=== PATIENT | female | born 1930 | race Caucasian/White ===

== ENCOUNTER 2020-03-15 06:58 | Outpatient (CLI) | payer MEDICARE ==
--- NOTE | 2020-03-15 09:14 | ULT ---
ULTRASOUND ABDOMEN: HISTORY: Abdominal pain. FINDINGS: There is a 1.6 cm cyst in the left lobe of the liver. A single non-mobile shadowing 2.4 mm gallstone is seen without gallbladder wall thickening or cholecystic fluid. The common duct measures 8 mm in diameter. The tail of the pancreas is not visualized. The visualized portions of the pancreas and I VC are normal. The right kidney is normal. The abdominal aorta demonstrates an aneurysm measuring 4 cm in transverse and 3.7 cm AP dimension. No free fluid is seen. IMPRESSION: 1. Hepatic cyst. 2. Cholelithiasis. 3. Abdominal aortic aneurysm measuring 4 x 3.7 cm. POS: [facility]
== END 2020-03-15 06:59 | disposition home or self-care (01) ==
LOC: BICULT 06:58
PROVIDERS: ATTEND Internal Medicine
DX: R10.13 Epigastric pain (principal); R14.0 Abdominal distension (gaseous); K76.89 Other specified diseases of liver; K80.20 Calculus of gallbladder without cholecystitis without obstruction; I71.4 Abdominal aortic aneurysm, without rupture
CPT/HCPCS: 76705

== ENCOUNTER 2020-08-03 11:42 | Outpatient (CLI) | payer MEDICARE, OTHER ==
[2020-08-03 14:16] LABS: Hemoglobin 14.1 g/dL (12.0-16.0); Mean Corpuscular HGB CONC 34.1 g/dL (32.0-36.0); Mean Corpuscular Hemoglobin 33.7 pg (27.0-31.0); Mean Corpuscular Volume 98.9 fL (78.0-98.0); Mean Platelet Volume 7.4 fL (7.4-10.4); Platelet Count 334 thou/uL (130-400); RBC Distribution Width 12.2 % (11.5-14.5); Red Blood Cell (RBC) Count 4.17 mill/uL (4.20-5.40); White Blood Cell (WBC) Count 7.3 thou/uL (4.8-10.8)
[2020-08-03 15:36] LABS: ALT (SGPT) 13 U/L (8-55); AST (SGOT) 16 U/L (5-34); Albumin 4.2 g/dL (3.4-4.8); Alkaline Phosphatase 63 U/L (40-110); Anion Gap 17 mmol/L (10-20); BUN (Urea Nitrogen) 15 mg/dL (9.8-20.1); Bilirubin, Direct 0.2 mg/dL (0.1-0.3); Bilirubin, Total 0.5 mg/dL (0.2-1.2); Calc. Creatinine Clearance 0 mL/min (70-130); Calcium 9.7 mg/dL (7.8-10.44); Carbon Dioxide 24 mmol/L (23-31); Chloride 100 mmol/L (98-107); Estimated GFR-MDRD 49; Glucose 104 mg/dL (83-110); Potassium 3.3 mmol/L (3.5-5.1); Protein, Total 6.7 g/dL (6.0-8.3); Sodium 138 mmol/L (136-145)
[2020-08-04 12:06] LABS: SARS-CoV-2 MS2 Positive; SARS-CoV-2 N Gene Negative; SARS-CoV-2 S Gene Negative; SARS-CoV-2 by NAA Not Detected (NotDetected); SARS-CoV-2 orf1ab Negative
== END 2020-08-03 11:43 | disposition home or self-care (01) ==
LOC: LABBT 11:42
PROVIDERS: ATTEND Surgery
DX: Z01.812 Encounter for preprocedural laboratory examination (principal); Z20.828 Contact with and (suspected) exposure to other viral communicable diseases; K80.20 Calculus of gallbladder without cholecystitis without obstruction
CPT/HCPCS: 80048; 80076; 85027; U0003; 87635

== ENCOUNTER 2020-08-08 06:48 | Day surgery (SDC) | payer MEDICARE ==
[2020-08-04 13:39] VITALS: BMI 25.0
[2020-08-08] MEDS ORDERED: cefOXitin Sodium/Dextrose 2 GM/50 ML BAG ONE (08:10)
[2020-08-08] MEDS ORDERED: Iothalamate Meglumine 60% 50 ML VIAL FS ONE (08:17)
[2020-08-08] MEDS ORDERED: Bupivacaine/Epinephrine 0.25% 30 ML VIAL ONE (08:17)
[2020-08-08] MEDS ORDERED: Fentanyl 100 MCG/2 ML VIAL ONE ×3 (08:22→10:31)
[2020-08-08] MEDS ORDERED: Ondansetron ODT 4 MG TAB ONE (08:23)
[2020-08-08] MEDS ORDERED: Dexamethasone 20 MG/5 ML VIAL ONE (09:40)
[2020-08-08] MEDS ORDERED: PROPOFOL 200 MG/20 ML VIAL ONE (09:40)
[2020-08-08] MEDS ORDERED: Glycopyrrolate 0.2 MG/ML 5 ML SYRINGE ONE (09:40)
[2020-08-08] MEDS ORDERED: Lidocaine 1% PF 5 ML VIAL ONE (09:40)
[2020-08-08] MEDS ORDERED: Rocuronium Bromide 10 MG/ML (10ML VIAL) ONE (09:40)
[2020-08-08] MEDS ORDERED: Ondansetron HCl/PF 4 MG/2 ML Vial IVP PRN (10:08)
[2020-08-08] MEDS ORDERED: Promethazine HCl 25 MG/ML VIAL IM PRN (10:08)
[2020-08-08] MEDS ORDERED: Promethazine HCl 25 MG/ML VIAL SLOW IVP PRN (10:08)
[2020-08-08] MEDS ORDERED: PACU-Morphine 4MG/ML VIAL SLOW IVP PRN (10:08)
[2020-08-08] MEDS ORDERED: Morphine 4 MG/ML VIAL ONE (10:24)
[2020-08-08] MEDS ORDERED: HYDROcodone/Acetaminophen 5/325 mg Tablet ONE (11:59)
--- NOTE | 2020-08-08 15:16 | OP ---
DATE OF PROCEDURE: 08/08/2020 PREOPERATIVE DIAGNOSIS: Symptomatic gallstones. POSTOPERATIVE DIAGNOSIS: Symptomatic gallstones. PROCEDURE: Laparoscopic cholecystectomy. ANESTHESIA: General. ESTIMATED BLOOD LOSS: Minimal. COMPLICATIONS: None. SPECIMEN: Gallbladder. FINDINGS: Chronic cholecystitis. PROCEDURE IN DETAIL: The patient was taken to the operating room and laid supine on the operating room table. After general anesthetic was obtained, the abdomen was prepped and draped in a sterile fashion. A curved incision was made below the umbilicus. Cautery was used to dissect down to the umbilical fascia. Umbilical fascia was incised and held up using a Reid. The abdominal cavity was entered using a Jeana clamp. Holding stitch of Vicryl was placed on each side of the fascia. Oliver trocar was placed. High-flow pneumoperitoneum was obtained. An upper midline 5 mm port and 2 right upper quadrant 5 mm ports were placed under direct camera visualization. The gallbladder was retracted from the gallbladder fossa. The peritoneum of the gallbladder was opened anteriorly and posteriorly. The critical view triangle was seen showing only the cystic duct and cystic artery branching from medial to lateral. There were no other branching structures. Two clips were placed proximally on the cystic duct and one laterally. It was cut using laparoscopic scissors. The cystic artery was taken in the same way. Electrocautery was then used to dissect the gallbladder out of the gallbladder fossa. The gallbladder was placed in an Endo catch bag and brought out through the Oliver. There was no bleeding or bile in the liver bed. The cystic duct stump and cystic artery stump were intact, without evidence of extravasation or bleeding. All port sites were infiltrated using local anesthesia. All ports were removed under camera visualization. Pneumoperitoneum was let down. The Vicryl was used to close the fascial defect below the umbilicus. All incisions were irrigated and closed using 4-0 Monocryl and Dermabond. The patient was en route to Recovery in stable condition. All instrument counts, needle counts and lap counts were correct. Job ID: [id number]
--- NOTE | 2020-08-09 16:11 | EKG ---
Test Reason : PREOP Blood Pressure : / mmHG Vent. Rate : 048 BPM Atrial Rate : 048 BPM P-R Int : 182 ms QRS Dur : 102 ms QT Int : 472 ms P-R-T Axes : 015 -39 012 degrees QTc Int : 421 ms Marked sinus bradycardia Left axis deviation Minimal voltage criteria for LVH, may be normal variant Non-specific intra-ventricular conduction delay Nonspecific ST and T wave abnormality Abnormal ECG No previous ECGs available Confirmed by ROSALBA CHERY ([id number]) on 08/09/2020 4:11:07 PM Referred By: BETH Confirmed By:ROSALBA CHERY
== END 2020-08-08 13:05 | disposition home or self-care (01) ==
LOC: SDC 06:48
PROVIDERS: ATTEND Surgery
PROC: 0FT44ZZ Resection of Gallbladder, Percutaneous Endoscopic Approach (ICD-10-PCS; principal; 2020-08-08)
DX: K80.10 Calculus of gallbladder with chronic cholecystitis without obstruction (principal); I10 Essential (primary) hypertension; E78.00 Pure hypercholesterolemia, unspecified; F41.9 Anxiety disorder, unspecified; F32.9 Major depressive disorder, single episode, unspecified; E03.9 Hypothyroidism, unspecified; M18.9 Osteoarthritis of first carpometacarpal joint, unspecified; Z79.899 Other long term (current) drug therapy; Z88.1 Allergy status to other antibiotic agents
CPT/HCPCS: 88304; 93005; 93010; J0694; J1100; J2270; J2704; J3010; Q0162

== ENCOUNTER 2020-08-13 10:26 | Observation (INO) | payer MEDICARE ==
[2020-08-13 11:16] LABS: #Eosinphils 0.1 thou/uL (0.0-0.7); #Monocytes 0.5 thou/uL (0.11-0.59); #Neutrophils 6.2 thou/uL (1.40-6.50); %Basophils 0.3 % (0.0-1.0); %Lymphocytes 12.4 % (21.0-51.0); %Monocytes 6.7 % (0.0-10.0); %Neutrophils 79.6 % (42.0-75.0); Hemoglobin 14.4 g/dL (12.0-16.0); Mean Corpuscular HGB CONC 34.2 g/dL (32.0-36.0); Mean Corpuscular Hemoglobin 33.9 pg (27.0-31.0); Mean Corpuscular Volume 99.2 fL (78.0-98.0); Mean Platelet Volume 7.6 fL (7.4-10.4); Platelet Count 461 thou/uL (130-400); RBC Distribution Width 12.1 % (11.5-14.5); Red Blood Cell (RBC) Count 4.23 mill/uL (4.20-5.40); White Blood Cell (WBC) Count 7.8 thou/uL (4.8-10.8)
[2020-08-13] MEDS ORDERED: Morphine 4 MG/ML VIAL ONE (11:19)
[2020-08-13] MEDS ORDERED: Ondansetron PF 4 MG/2 ML Vial ONE (11:19)
[2020-08-13 11:35] LABS: ALT (SGPT) 19 U/L (8-55); AST (SGOT) 18 U/L (5-34); Albumin 3.7 g/dL (3.4-4.8); Alkaline Phosphatase 72 U/L (40-110); Anion Gap 19 mmol/L (10-20); BUN (Urea Nitrogen) 14 mg/dL (9.8-20.1); Bilirubin, Total 0.8 mg/dL (0.2-1.2); CK (CPK) 53 U/L (29-168); Calc. Creatinine Clearance 0 mL/min (70-130); Calcium 9.6 mg/dL (7.8-10.44); Carbon Dioxide 25 mmol/L (23-31); Chloride 97 mmol/L (98-107); Estimated GFR-MDRD 52; Globulin 3.4 g/dL (2.4-3.5); Glucose 193 mg/dL (83-110); Protein, Total 7.1 g/dL (6.0-8.3); Sodium 138 mmol/L (136-145)
[2020-08-13 11:41] LABS: Potassium 2.8 mmol/L (3.5-5.1)
[2020-08-13] MEDS ORDERED: Potassium Chloride 20 MEQ/100 ML PREMIX BAG ONE (12:10)
[2020-08-13] MEDS ORDERED: Aspirin Chewable 81 MG TAB ONE ×2 (12:10)
[2020-08-13] MEDS ORDERED: Iopamidol-370 76% 500 ML 1 ML ONE (13:47)
--- NOTE | 2020-08-13 13:47 | RAD ---
PORTABLE CHEST: 08/13/20 HISTORY: Gallbladder removed on Saturday. Woke up last night with sweats, left arm and chest pain. Heart size is within normal limits. There are atherosclerotic changes of the aorta. There is some mil d elevation of the right hemidiaphragm. No focal infiltrative process or signs of failure. Arthritic changes of both shoulders. IMPRESSION: No active intrathoracic disease. POS: OFF
[2020-08-13 14:27] LABS: Bacteria/HPF 4+ HPF (None Seen); Bilirubin Negative (Negative); Blood, Urine Negative (Negative); Clarity Clear (Clear); Glucose, Urine (Dipstick) Normal (Negative); Ketone, Urine Negative (Negative); Leukocyte 25 Leu/uL (Negative); Nitrite Negative (Negative); Protein, Urine (Dipstick) Negative (Neg-Trace); RBC/HPF None Seen HPF (0-3); Specific Gravity, Urine 1.006 (1.002-1.036); Squamous Epithelial 0-3 HPF (0-3); Urobilinogen Normal mg/dL (Less than 2); pH, Urine 6.5 (5.0-9.0)
[2020-08-13 14:59] LABS: Lactic Acid 1.2 mmol/L (0.5-2.2)
[2020-08-13 17:18] LABS: Troponin I 0.029 ng/mL (< 0.028)
[2020-08-13] MEDS ORDERED: Ondansetron PF 4 MG/2 ML Vial IVP PRN (17:24)
[2020-08-13] MEDS ORDERED: Acetaminophen 325 MG TAB PO PRN (17:24)
--- NOTE | 2020-08-13 17:28 | CT ---
CT ANGIO OF CHEST PERFORMED WITH INTRAVENOUS CONTRAST ENHANCEMENT WITH 3D RECONSTRUCTIONS: 08/13/20 HISTORY: Chest pain. Elevated D-dimer. The lungs are clear of any infiltrative process. There is a small right pleural effusion and right lo wer lobe atelectatic changes. There is some free air under the right hemidiaphragm and some fluid adj acent to the liver. Patient is status post a cholecystectomy five days ago and this air could be rela sharon to the cholecystectomy. There is no significant mediastinal or hilar adenopathy and the thoracic aorta is normal in caliber. There is good pulmonary artery opacification. There is no CT evidence for pulmonary embolus. The gall bladder fossa region is partially visualized. There is mixed fluid and air seen within the gallbladde r fossa region. Again, this could be postop. Early changes of an abscess are not excluded. Hypodensit y within the left lobe of the liver statistically most likely a cyst, difficult to characterize. IMPRESSION: 1. Fairly small right pleural effusion with right lower lobe atelectasis. Also some fluid adjace nt to the liver. The liver and mixed collection of air and fluid in the gallbladder fossa region. Thi s could just be related to the recent surgery. There is also some free air seen within the abdomen al isis the dome of the liver. Again possibly all post cholecystectomy. I would probably be helpful to ob tain a CT of the abdomen to evaluate for any other significant free fluid as there could be a possibi lity of developing abscess or some type of bile leak causing the fluid around the liver capsule. 2. No CT evidence for pulmonary embolus. POS: OFF
[2020-08-13] MEDS ORDERED: Potassium Chloride 20 MEQ TAB PO SCH (17:30)
[2020-08-13] MEDS ORDERED: Potassium Chloride 20 MEQ TAB ONE (18:22)
--- NOTE | 2020-08-13 18:53 | HP ---
CHIEF COMPLAINT: Epigastric and chest pain. HISTORY OF PRESENT ILLNESS: The patient is an 89-year-old female with past medical history of hypertension, hyperlipidemia, and recent cholecystectomy on August 08 for symptomatic gallstones, who presented to the hospital today with complaints of upper epigastric and lower chest burning that started last night and woke her up from sleep. The patient stated that the pain was associated with nausea and heavy sweating. She called her Life Alert button and EMS arrived. The patient was evaluated and no abnormality was detected. She went back to bed and after waking up today, she started experiencing the pain again, which prompted her to come to the emergency department. The patient denies fever, chills, palpitations, dizziness, or syncope. In the ER, her initial EKG was unremarkable and initial troponin was negative. Her D-dimer was elevated and CT angiogram of the chest was done and did not show any evidence of pulmonary emboli. The patient did not undergo any coronary artery disease related testing in the past. REVIEW OF SYSTEMS: Negative except as noted in HPI. PAST MEDICAL HISTORY: As noted above. PAST SURGICAL HISTORY: Cholecystectomy. FAMILY HISTORY: Noncontributory for her current presentation. ALLERGIES: THE PATIENT IS ALLERGIC TO LEVOFLOXACIN. PHYSICAL EXAMINATION: GENERAL: The patient is alert and oriented x3. HEENT: Head is normocephalic and atraumatic. Extraocular muscles are intact. NECK: Supple. CHEST: Clear to auscultation bilaterally. CARDIOVASCULAR: Normal S1 and S2, regular rate and rhythm. No murmurs, rubs, or gallops. ABDOMEN: Soft, nontender, nondistended. Bowel sounds are normal. NEUROLOGICAL: Unremarkable. LABORATORY DATA: This is positive for hypokalemia with potassium of 2.8 and slight hyperglycemia with a glucose of 193. Initial lactic acid was 2.5 and repeat was 1.2. ASSESSMENT: 1. Chest pain, rule out acute coronary syndrome. 2. Recent cholecystectomy. 3. Hypertension. 4. Hyperlipidemia. 5. Hypokalemia. 6. Lactic acidosis. PLAN: The patient will be placed in observation in the telemetry unit. We will initiate gentle hydration as the patient's initial labs revealed lactic acidosis. Trend troponin levels. Start Protonix 40 mg orally twice daily. Replace potassium. Hold HCTZ as this is the likely etiology of her hypokalemia. N.p.o. after midnight and stress test in the morning if her troponins remain low. Enoxaparin for DVT prophylaxis. Job ID: [id number]
[2020-08-13] MEDS: Sodium Chloride 0.9% 1,000 ML IV SCH (19:42)
[2020-08-13 19:49] LABS: Troponin I 0.027 ng/mL (< 0.028)
[2020-08-13] MEDS ORDERED: Atorvastatin Calcium 20 MG TAB PO SCH (21:00)
[2020-08-13] MEDS ORDERED: Amlodipine 5 MG TAB PO SCH (21:00)
[2020-08-13 22:11] VITALS: BMI 25.8
[2020-08-13] MEDS: Pantoprazole 40 MG GRANULES PACKET PO SCH (23:05)
[2020-08-14] MEDS ORDERED: Melatonin 3 MG TAB PO PRN (00:09)
[2020-08-14 05:45] LABS: #Eosinphils 0.3 thou/uL (0.0-0.7); #Lymphocytes 1.4 thou/uL (1.20-3.40); #Monocytes 0.6 thou/uL (0.11-0.59); #Neutrophils 4.5 thou/uL (1.40-6.50); %Basophils 0.7 % (0.0-1.0); %Lymphocytes 20.7 % (21.0-51.0); %Monocytes 8.7 % (0.0-10.0); Hemoglobin 11.7 g/dL (12.0-16.0); Mean Corpuscular HGB CONC 33.8 g/dL (32.0-36.0); Mean Corpuscular Hemoglobin 33.9 pg (27.0-31.0); Mean Platelet Volume 7.4 fL (7.4-10.4); Platelet Count 391 thou/uL (130-400); RBC Distribution Width 12.2 % (11.5-14.5); Red Blood Cell (RBC) Count 3.47 mill/uL (4.20-5.40); White Blood Cell (WBC) Count 6.8 thou/uL (4.8-10.8)
[2020-08-14] MEDS ORDERED: Levothyroxine Sodium 100 MCG TAB PO SCH (06:00)
[2020-08-14 06:04] LABS: Anion Gap 14 mmol/L (10-20); BUN (Urea Nitrogen) 13 mg/dL (9.8-20.1); Calc. Creatinine Clearance 53 mL/min (70-130); Calcium 8.6 mg/dL (7.8-10.44); Carbon Dioxide 26 mmol/L (23-31); Chloride 103 mmol/L (98-107); Estimated GFR-MDRD 64; Glucose 103 mg/dL (83-110); Potassium 3.4 mmol/L (3.5-5.1); Sodium 140 mmol/L (136-145)
[2020-08-14] MEDS: Pantoprazole 40 MG GRANULES PACKET PO SCH (08:17)
[2020-08-14] MEDS: Sodium Chloride 0.9% 1,000 ML IV SCH (08:17)
[2020-08-14] MEDS ORDERED: Losartan 25 MG TAB PO SCH (09:00)
[2020-08-14] MEDS ORDERED: Enoxaparin Sodium 40 MG/0.4 ML SYRINGE SC SCH (09:00)
[2020-08-14] MEDS ORDERED: Aspirin 81 mg Enteric Coated Tablet PO SCH (09:00)
[2020-08-14] MEDS ORDERED: ADENOSINE 60 MG/20 ML VIAL ONE (12:38)
--- NOTE | 2020-08-14 13:14 | NM ---
EXAM: NM Cardiac Stress W EF WF PROVIDED CLINICAL HISTORY: Chest pain and hypertension. COMPARISON: None FINDINGS: This examination is performed as a pharmacologic myocardial stress test after the administration of a denosine intravenously. There is a small relatively fixed defect seen involving the distal ventricular septum and at the apex . No significant reversible defect is seen between the stress and resting acquisitions. Gated images demonstrate normal ventricular wall motion and wall thickening. The calculated left ventricula r ejection fraction is 79%. IMPRESSION: 1. Relatively fixed defect involving the distal septum and ventricular apex, but there is normal vent ricular wall motion and wall thickening in this region. Findings are likely related to overlying soft tissue attenuation. There is no significant reversible defect seen to suggest ischemia. 2. Normal LVEF of 79%.
[2020-08-14 13:41] VITALS: BP 131/62; TEMP 98
[2020-08-14] MEDS ORDERED: FLU VACC QS2020-21(65YR UP)/PF 240 MCG/0.7 ML SYRINGE IM ONE (21:00)
--- NOTE | 2020-08-15 03:24 | DIS ---
DATE OF ADMISSION: 08/13/2020 DATE OF DISCHARGE: 08/14/2020 DISCHARGE DIAGNOSES: 1. Chest pain, acute coronary syndrome ruled out. 2. Hypokalemia. 3. Hypertension. 4. Hyperlipidemia. 5. Dehydration. 6. Lactic acidosis. 7. Recent cholecystectomy. DISCHARGE MEDICATIONS: 1. Aspirin 81 mg orally daily. 2. Atorvastatin 20 mg orally nightly. 3. Pantoprazole 40 mg orally daily. 4. Losartan 100 mg orally daily. The rest of her home medications were unchanged with the exception of hydrochlorothiazide, which has been discontinued. HISTORY OF PRESENT ILLNESS AND HOSPITAL COURSE: The patient is an 89-year-old female with past medical history of hypertension, hyperlipidemia, remote and recent cholecystectomy who presented to the hospital with complaints of central burning chest and epigastric pain that woke her up from sleep. The patient was admitted for evaluation to rule out ACS. Her initial EKG did not show any ST elevations, troponins were trended and did not show any significant elevations. Her D-dimer was elevated and CT angiogram of the chest was unremarkable. She was monitored for 24 hours without recurrence of her symptoms and underwent a nuclear stress test, which did not show any signs of reversible ischemia. The stress test showed a fixed defect involving the distal septum and ventricular apex with normal ventricular wall motion and wall thickening in the region. Left ventricular EF was 79%. The patient's symptoms are likely due to gastritis/GERD, especially that the patient is taking NSAIDs regularly. Her Protonix prescription was refilled and the patient was instructed to not take naproxen and that she really cannot relate the pain. She was also found to be hypokalemic and her hydrochlorothiazide was discontinued. Potassium was replaced prior to discharge. Job ID: [id number]
== END 2020-08-14 16:30 | disposition home or self-care (01) ==
LOC: ERS 10:26 → ERHOLD 16:44 → 2SW 21:56
PROVIDERS: ADMIT Internal Medicine; ATTEND Internal Medicine
DX: R07.9 Chest pain, unspecified (principal); E87.6 Hypokalemia; I10 Essential (primary) hypertension; E78.5 Hyperlipidemia, unspecified; E86.0 Dehydration; E87.2 Acidosis; Z79.82 Long term (current) use of aspirin; Z79.899 Other long term (current) drug therapy; Z88.1 Allergy status to other antibiotic agents
CPT/HCPCS: 71045; 71275; 78452; 80048; 80053; 82550; 83605; 83735; 83880; 84484 ×2; 85025 ×2; 85379; 87040; 93005; 93017; 96361; 96365; 96366; 96375; 97139; 99285; A9500; 36415; 81003; 81015; G0378; J0153; J2270; J2405; J3480; Q9967

== ENCOUNTER 2020-08-22 15:35 | Emergency (ER) | payer MEDICARE ==
[2020-08-22 15:59] LABS: #Eosinphils 0.1 thou/uL (0.0-0.7); #Lymphocytes 1.3 thou/uL (1.20-3.40); #Monocytes 0.4 thou/uL (0.11-0.59); #Neutrophils 4.5 thou/uL (1.40-6.50); %Basophils 0.1 % (0.0-1.0); %Eosinophils 1.4 % (0.0-10.0); %Lymphocytes 20.8 % (21.0-51.0); %Monocytes 5.7 % (0.0-10.0); Hemoglobin 13.7 g/dL (12.0-16.0); Mean Corpuscular HGB CONC 34.4 g/dL (32.0-36.0); Mean Corpuscular Hemoglobin 34.3 pg (27.0-31.0); Mean Corpuscular Volume 99.5 fL (78.0-98.0); Mean Platelet Volume 7.1 fL (7.4-10.4); Platelet Count 468 thou/uL (130-400); White Blood Cell (WBC) Count 6.2 thou/uL (4.8-10.8)
--- NOTE | 2020-08-22 15:59 | RAD ---
XR Chest 1 View Portable HISTORY: High blood pressure COMPARISON: 01/29/2020 FINDINGS: The heart size is normal. The aorta is tortuous. There is continued mild elevation the righ t hemidiaphragm. The lungs are without focal areas of consolidation, pneumothorax or pleural effusions. IMPRESSION: No radiographic evidence of acute cardiopulmonary process.
[2020-08-22 16:16] LABS: ALT (SGPT) 8 U/L (8-55); AST (SGOT) 14 U/L (5-34); Albumin 3.8 g/dL (3.4-4.8); Alkaline Phosphatase 72 U/L (40-110); Anion Gap 13 mmol/L (10-20); BUN (Urea Nitrogen) 13 mg/dL (9.8-20.1); Bilirubin, Total 0.3 mg/dL (0.2-1.2); Calc. Creatinine Clearance 0 mL/min (70-130); Calcium 9.4 mg/dL (7.8-10.44); Carbon Dioxide 22 mmol/L (23-31); Chloride 107 mmol/L (98-107); Estimated GFR-MDRD 60; Globulin 3.4 g/dL (2.4-3.5); Glucose 141 mg/dL (83-110); Potassium 3.4 mmol/L (3.5-5.1); Protein, Total 7.2 g/dL (6.0-8.3); Sodium 139 mmol/L (136-145)
--- NOTE | 2020-08-27 14:07 | EKG ---
Test Reason : Blood Pressure : / mmHG Vent. Rate : 084 BPM Atrial Rate : 084 BPM P-R Int : 148 ms QRS Dur : 102 ms QT Int : 372 ms P-R-T Axes : 005 -38 092 degrees QTc Int : 439 ms Normal sinus rhythm Left axis deviation Left ventricular hypertrophy with repolarization abnormality Cannot rule out Septal infarct , age undetermined Abnormal ECG Confirmed by JOHNATHAN CANADA ([id number]), greeting card editor SHILA BOYCE ([id number]) on 08/27/2020 2:07:10 PM Referred By: Confirmed By:JOHNATHAN Martinez
== END 2020-08-22 18:28 | disposition home or self-care (01) ==
LOC: ERS 15:35
DX: I10 Essential (primary) hypertension (principal); E03.9 Hypothyroidism, unspecified; Z79.899 Other long term (current) drug therapy
CPT/HCPCS: 36415; 71045; 80053; 84484; 85025; 93005

== ENCOUNTER 2020-09-12 10:31 | Outpatient (CLI) | payer MEDICARE ==
--- NOTE | 2020-09-12 12:42 | CT ---
CT OF THE ABDOMEN AND PELVIS WITH IV CONTRAST INDICATION: Epigastric abdominal pain with bloating and constipation for many months; history of part ial hysterectomy and cholecystectomy COMPARISON: CTA of the chest dated August 13, 2020 FINDINGS: ABDOMEN: Lung bases: Mild subsegmental volume loss Liver: There is a 1.7 cm cyst within the lateral left hepatic lobe. There is a 1.8 x 1.2 cm hypodense collection seen within the gallbladder fossa which may reflect some residual postoperative fluid from the patient's cholecystectomy site. Mildly complex fluid still remains overlying the right hepat ic dome, less than prominent than on the comparison CT examination. Gallbladder: Surgically absent Pancreas: Normal. Adrenal glands: Normal. Spleen: Normal. Kidneys and ureters: Normal. No hydronephrosis. Vasculature: There is a 4.2 cm infrarenal abdominal aortic aneurysm. There are severe vascular calcif ications seen involving the visualized vasculature. Lymph nodes:No lymphadenopathy. Free fluid in abdomen:No free fluid is evident. PELVIS: Small and large bowel: There are a few scattered colonic diverticula without evidence of active diver ticulitis. No large amount of retained stool is evident. Appendix:Not definitely visualized Bladder: Normal. Rectal and perirectal soft tissues:Normal. Reproductive structures: Not visualized and likely surgically absent Free fluid in pelvis: No free fluid is evident. Lymphadenopathy pelvis: No lymphadenopathy is evident. Osseous structures: There is thoracolumbar scoliosis. There is diffuse osteopenia. There is grade 1 a nterolisthesis of L5 on S1 with associated bilateral L5 pars defects. There is scattered degenerative and osteoarthritic changes. Soft tissues:Normal. IMPRESSION: 1. 1.8 cm hypodense collection seen within the gallbladder fossa may reflects residual postoperative fluid. Small contained bile leak cannot be entirely excluded. Recommend short-term follow-up in 2-4 weeks to document resolution 2. Slowly resolving mildly complex fluid overlying the right hepatic dome. 3. Infrarenal abdominal aortic aneurysm measuring 4.2 cm.
[2020-09-12] MEDS ORDERED: Iopamidol-370 76% 500 ML 1 ML ONE (13:47)
== END 2020-09-12 10:32 | disposition home or self-care (01) ==
LOC: BICCT 10:31
PROVIDERS: ATTEND Internal Medicine Gastroenterology
DX: R10.13 Epigastric pain (principal); I71.4 Abdominal aortic aneurysm, without rupture; R18.8 Other ascites
CPT/HCPCS: 74177; Q9967

== ENCOUNTER 2021-07-18 08:46 | Outpatient (CLI) | payer MEDICARE | END 2021-07-18 08:47 | disposition home or self-care (01) | LOC: ULT 08:46 | PROVIDERS: ATTEND Internal Medicine | DX: I71.4 Abdominal aortic aneurysm, without rupture (principal) | CPT/HCPCS: 76706 ==